=== PATIENT | female | born 1970 | race African-American/Black ===

== ENCOUNTER 2017-04-03 20:40 | Emergency (ER) | payer SELFPAY ==
[~2017-04-03] VITALS: Ht 162.6 cm; Wt 117.9 kg
--- NOTE | ~2017-04-03 | CR63 ---
[facility] A Service of [facility] RADIOLOGY TEXT RESULTS PATIENT: ANDREA MARTINEZ LOCATION: [facility] : 66 UNIT #: [id number] AGE: [address]: Alex Guadarrama MD SEX: F ORDER DR: [id number] [facility] [address] [place], [place] [address] [id number] MR#: [id number] Acc #: [id number] NAME: ANDREA MARTINEZ : 1970 SEX: F STUDY DATE/TIME: 04/03/2017 22:20 UNIT: [facility] ROOM: STUDY DESCRIPTION: CR Chest 2 View Attending Physician: Alex Guadarrama M.D. Ordering Physician: Alex Guadarrama M.D. Primary Care Physician: No Primary Care Physician MEDICAL IMAGING REPORT This report is preliminary unless electronic signature is present EXAM PA and lateral chest. INDICATIONS Chest pain, fever, cough for 2 weeks. FINDINGS PA and lateral examination of the chest upright shows a good expansion of the parenchyma with a normal distribution of the pulmonary vascularity. There is no indication of congestion, effusion, infiltrate, tumor, or nodular density. The pleural reflections and diaphragmatic contours are normal. The cardiac silhouette and mediastinal anatomy is within normal limits. IMPRESSION Normal PA and lateral chest. Dictated by... Rafael Faustin M.D. THIS IS AN ELECTRONICALLY VERIFIED REPORT Rafael Faustin M.D. at 04/06/2017 8:50 AM YASMIN/salomon TD: 04/04/2017 21:05 JOB #: [id number] MEDICAL IMAGING REPORT Page 1 of 1 COPY
== END 2017-04-03 22:56 | disposition home or self-care (01) ==
LOC: CED 20:40
DX: J06.9 Acute upper respiratory infection, unspecified (principal); F17.200 Nicotine dependence, unspecified, uncomplicated; Z90.710 Acquired absence of both cervix and uterus
CPT/HCPCS: 71020; 99283